=== PATIENT | female | born 1960 | race Two or more races ===

== ENCOUNTER 2021-11-11 13:19 | Emergency (ER) | payer OTHER ==
[~2021-11-11] VITALS: Ht 157.5 cm; Wt 89.9 kg
[2021-11-11] MEDS ORDERED: ASPIRIN CHEWABLE 81 MG TABLET. PO ONE (14:00)
--- NOTE | 2021-11-11 14:02 | PHYS DOC ---
Past Medical History Past Surgical History: No Surgical History General Adult EDM: Chief Complaint: UPPER EXTREMITY PAIN HPI: HPI: Patient is a 61 year old female who presents with yesterday awoke with left arm pressure type pain that does come and go that starts at the shoulder and will go down the arm. She did get a headache this morning but was taken away with ibuprofen. She denies taking anything for the pain. She has been very stressed out lately due to family problems. Patient has a history of hypertension, high cholesterol, prediabetes. Patient states she does not take any medications because everything is controlled at this time. [facility] goes to the [facility] for her care. Patient denies any close family members having any heart problems or heart attacks. She denies chest pain, numbness or tingling, as of breath, fever, extremity swelling, skin color change, skin temperature change, abdominal pain, nausea, vomiting, dizziness, vision change. She is denying any pain at this time. She denies any current injury to the extremity. Review of Systems: Review of Systems: Constitutional: Denies fever or chills. [] Eyes: Denies change in visual acuity. [] HENT: Denies nasal congestion or sore throat. [] Respiratory: Denies cough or shortness of breath. [] Cardiovascular: Denies chest pain or edema. [] GI: Denies abdominal pain, nausea, vomiting, bloody stools or diarrhea. [] : Denies dysuria. [] Musculoskeletal: Denies back pain or joint pain. + Left arm pain [] Integument: Denies rash. [] Neurologic: + headache, denies focal weakness or sensory changes. + Left arm heaviness [] Endocrine: Denies polyuria or polydipsia. [] Lymphatic: Denies swollen glands. [] Psychiatric: Denies depression or anxiety. [] Heart Score: C/O Chest Pain: No HEART Score for Chest Pain: HEART Score for Chest Pain Response (Comments) Value History Slighlty/Non-Suspicious 0 ECG Normal 0 Age >45 - < 65 1 Risk Factors 1 or 2 Risk Factors 1 Troponin < Normal Limit 0 Total 2 Risk Factors: Risk Factors: DM, Current or recent (<one month) smoker, HTN, HLP, family history of CAD, obesity. Risk Scores: Score 0 - 3: 2.5% MACE over next 6 weeks - Discharge Home Score 4 - 6: 20.3% MACE over next 6 weeks - Admit for Clinical Observation Score 7 - 10: 72.7% MACE over next 6 weeks - Early Invasive Strategies Current Medications: Current Medications Medications (Trade) Dose Ordered Sig/Orville Start Time Stop Time Status Last Admin Dose Admin Aspirin (Aspirin Chewable) 324 mg 1X ONCE 11/11/21 14:00 11/11/21 14:01 UNV Physical Exam: PE: Constitutional: Well developed, well nourished, no acute distress, non-toxic appearance. [] HENT: Normocephalic, atraumatic, bilateral external ears normal, oropharynx moist, no oral exudates, nose normal. [] Eyes: PERRLA, EOMI, conjunctiva normal, no discharge. [] Neck: Normal range of motion, no tenderness, supple, no stridor. [] Cardiovascular:Heart rate regular rhythm, no murmur [] Lungs & Thorax: Bilateral breath sounds clear to auscultation [] Abdomen: Bowel sounds normal, soft, no tenderness, no masses, no pulsatile masses. [] Skin: Warm, dry, no erythema, no rash. [] Back: No tenderness, no CVA tenderness. [] Extremities: No tenderness, no cyanosis, no clubbing, ROM intact, no edema. [] Neurologic: Alert and oriented X 3, normal motor function, normal sensory function, no focal deficits noted. [] Psychologic: Affect normal, judgement normal, mood normal. [] Normal physical exam Current Patient Data: Vital Signs: Vital Signs Date Time Temp Pulse Resp B/P (MAP) Pulse Ox O2 Delivery O2 Flow Rate FiO2 11/11/21 13:20 98.6 114 18 165/79 (107) 98 Room Air 98.6 EKG: EK and read by Dr. Sanchez as sinus rhythm and no STEMI. Radiology/Procedures: Radiology/Procedures: [] Impression: [facility] [address] [place] [address] IMAGING REPORT Signed PATIENT: CORRY CAIN ACCOUNT: [id number] : 1960 LOCATION: ER AGE: 61 SEX: F EXAM STATUS: PRE ER ORD. PHYSICIAN: PREETI DUMAS APRN REASON: htn, left arm pain PROCEDURE: PORTABLE CHEST 1V XR CHEST 1V INDICATION: htn, left arm pain . COMPARISON STUDY: None. FINDINGS: Lungs: Normal lung volume. No pulmonary mass or consolidation. The trach eobronchial tree and hilar structures are normal. Pleura: No pleural effusion or pneumothorax. Heart and Mediastinum: The cardiomediastinal silhouette is normal. Tortuosity of the thoracic aorta. IMPRESSION: No acute cardiopulmonary process. Electronically signed by: Adriano Pereira MD (11/11/2021 2:54 PM) [facility] DICTATED and SIGNED BY: ADRIANO PEREIRA MD DATE: 11/11/[address] [place] [address] [place] [address] IMAGING REPORT Signed PATIENT: CORRY CAINACCOUNT: [id number] : 1960 LOCATION: ER AGE: 61 SEX: F EXAM STATUS: PRE ER ORD. PHYSICIAN: PREETI DUMAS APRN REASON: headache, left arm weakness PROCEDURE: CT HEAD WO CONTRAST EXAMINATION: CT HEAD/BRAIN WO CLINICAL HISTORY: Headache, left arm weakness. TECHNIQUE: Serial axial images without IV contrast were obtained from the vertex to the foramen magnum. CT Dose Reduction Employed: One or more of the following individualized dose reduction techniques were utilized for this examination: 1. Automated exposure control 2. Adjustment of the mA and/or kV according to patient size 3. Use of iterative reconstruction technique. COMPARISON: None FINDINGS: Acute Change: No evidence of an acute infarct or other acute parenchymal process. Hemorrhage: No evidence of acute intracranial hemorrhage. Mass Lesion/Mass Effect: No evidence of intracranial mass or extraaxial fluid collection. No significant mass effect. Chronic Change: Patchy hypoattenuation in the supratentorial white matter, asymmetrically prominent in the left frontal and right parietal lobes, nonspecific but may be related to moderate microvascular ischemia. Small calcification along the lateral right parietal lobe, possibly sulcal. Atherosclerotic calcification of the intracranial portion of the bilateral internal carotid arteries. Parenchyma: Mild generalized volume loss. Ventricles: Ventricles within normal limits for age. Paranasal Sinuses and Skull Base: Visualized paranasal sinuses clear. Visualized skull base and soft tissues unremarkable. IMPRESSION: No evidence of acute intracranial abnormality. If concern for acute stroke, recommend MRI for further evaluation. Nonspecific supratentorial white matter hypoattenuation as described, possibly related to chronic microvascular ischemia. Electronically signed by: Sharad Peng DO (11/11/2021 2:34 PM) [id number] DICTATED and SIGNED BY: SHARAD PENG DO DATE: 11/11/21 1430 Course & Med Decision Making: Course & Med Decision Making Pertinent Labs and Imaging studies reviewed. (See chart for details) See HPI. Alert and oriented x4. Ambulatory with a steady gait. Speaks in full clear sentences. NIH is 0. Neurologically intact. Radial pulse strong pre sent. No extremity edema. Skin pink warm and dry. Cap refills less than 2 seconds. Full range of motion of all joints. Denies any neck pain and there is no nuchal rigidity. Denies a headache at this time. PERRLA. Vital signs are within normal limits. Her son-in-law is in the room interpreting for her. Patient is given an aspirin in the ED. Blood work is unremarkable. She had 2 troponins to rule out ACS. Vital signs have remained normal. Patient to follow-up at her clinic. With exam symptoms t his is likely a pinched nerve. [] Dragon Disclaimer: [place] Disclaimer: This electronic medical record was generated, in whole or in part, using a voice recognition dictation system. NIHSS Stroke Scale NIH Stroke Scale: NIH Stroke Scale Response (Comments) Value Level of Consciousness: 0 Alert/Responsive 0 LOC Questions: 0 Answers both correctly 0 LOC Commands: 0 Performs both tasks 0 Best Gaze: 0 Normal 0 Visual: 0 No visual loss 0 Facial Palsy: 0 Normal, symmetrical 0 Motor - Left Arm 0 No drift 0 Motor - Right Arm 0 No drift 0 Motor - Left Leg 0 No drift 0 Motor: Right Leg 0 No drift 0 Limb Ataxia: 0 Absent 0 Sensory: 0 No loss 0 Best Language: 0 Normal 0 Dysathria: 0 Normal 0 Extinction and Inattention: 0 Normal 0 Total 0 Departure Departure Impression: Primary Impression: Left arm pain Disposition: 01 HOME / SELF CARE / HOMELESS Condition: STABLE Referrals: NURIS GODINEZ DO (PCP) CHERRY WILLINGHAM MD Patient Instructions: Pinched Nerve Additional Instructions: Follow-up at your primary clinic as soon as possible. Take medication as prescribed and with food. Remember the muscle relaxer can make you sleepy should not drive while taking this medication. If you begin having shortness of breath, severe headache or dizziness, vomiting, chest pain you need to return to the emergency room. Scripts Cyclobenzaprine Hcl (CYCLOBENZAPRINE HCL) 5 Mg Tablet 1 TAB PO TID, #15 TAB Prov: PREETI DUMAS APRN 11/11/21 Ibuprofen (IBUPROFEN) 600 Mg Tablet 600 MG PO PRN Q6HRS PRN for INFLAMMATION, #20 TAB Prov: PREETI DUMAS APRN 11/11/21 PREETI DUMAS APRN Nov 11, 2021 14:01
[2021-11-11 14:30] LABS: BASO # 0.1 x10^3/uL (0.0-0.2); BASO % 1 % (0-3); EOS # 0.2 x10^3/uL (0.0-0.7); EOS % 2 % (0-3); HEMATOCRIT 44.5 % (36.0-47.0); HEMOGLOBIN 14.9 g/dL (12.0-15.5); LYMPH # 2.2 x10^3/uL (1.0-4.8); LYMPH % 31 % (24-48); MEAN CORPUSCULAR HEMOGLOBIN 31 pg (25-35); MEAN CORPUSCULAR HGB CONC 34 g/dL (31-37); MEAN CORPUSCULAR VOLUME 91 fL (79-100); MONO # 0.4 x10^3/uL (0.0-1.1); MONO % 5 % (0-9); NEUT # 4.3 x10^3/uL (1.8-7.7); NEUT % 60 % (31-73); PLATELET COUNT 254 x10^3/uL (140-400); RED BLOOD COUNT 4.88 x10^6/uL (3.50-5.40); RED CELL DISTRIBUTION WIDTH 13.3 % (11.5-14.5); WHITE BLOOD COUNT 7.1 x10^3/uL (4.0-11.0)
--- NOTE | 2021-11-11 14:37 | RAD ---
EXAMINATION: CT HEAD/BRAIN WO CLINICAL HISTORY: Headache, left arm weakness. TECHNIQUE: Serial axial images without IV contrast were obtained from the vertex to the foramen magnu m. CT Dose Reduction Employed: One or more of the following individualized dose reduction techniques elda e utilized for this examination: 1. Automated exposure control 2. Adjustment of the mA and/or kV ac cording to patient size 3. Use of iterative reconstruction technique. COMPARISON: None FINDINGS: Acute Change: No evidence of an acute infarct or other acute parenchymal process. Hemorrhage: No evidence of acute intracranial hemorrhage. Mass Lesion/Mass Effect: No evidence of intracranial mass or extraaxial fluid collection. No signific ant mass effect. Chronic Change: Patchy hypoattenuation in the supratentorial white matter, asymmetrically prominent i n the left frontal and right parietal lobes, nonspecific but may be related to moderate microvascular ischemia. Small calcification along the lateral right parietal lobe, possibly sulcal. Atheroscleroti c calcification of the intracranial portion of the bilateral internal carotid arteries. Parenchyma: Mild generalized volume loss. Ventricles: Ventricles within normal limits for age. Paranasal Sinuses and Skull Base: Visualized paranasal sinuses clear. Visualized skull base and soft tissues unremarkable. IMPRESSION: No evidence of acute intracranial abnormality. If concern for acute stroke, recommend MRI for further evaluation. Nonspecific supratentorial white matter hypoattenuation as described, possibly related to chronic rowena rovascular ischemia. Electronically signed by: Sharad Marc DO (11/11/2021 2:34 PM) [id number]
[2021-11-11 14:40] LABS: CALCIUM 9.2 mg/dL (8.5-10.1); CREATININE 0.8 mg/dL (0.6-1.0); GFR 72.4; POTASSIUM 3.7 mmol/L (3.5-5.1)
[2021-11-11 14:52] LABS: ALBUMIN 4.2 g/dL (3.4-5.0); ALBUMIN/GLOBULIN RATIO 1.1 (1.0-1.7); MAGNESIUM 2.3 mg/dL (1.8-2.4); TOTAL BILIRUBIN 0.7 mg/dL (0.2-1.0)
--- NOTE | 2021-11-11 14:56 | RAD ---
XR CHEST 1V INDICATION: htn, left arm pain . COMPARISON STUDY: None. FINDINGS: Lungs: Normal lung volume. No pulmonary mass or consolidation. The tracheobronchial tree and hilar st ructures are normal. Pleura: No pleural effusion or pneumothorax. Heart and Mediastinum: The cardiomediastinal silhouette is normal. Tortuosity of the thoracic aorta. IMPRESSION: No acute cardiopulmonary process. Electronically signed by: Derrick Pereira MD (11/11/2021 2:54 PM) [facility] SYSTEM[facility]
[2021-11-11 16:26] VITALS: BP 152/75
[2021-11-11] MEDS ORDERED: CYCL5TAB PO (17:17)
[2021-11-11] MEDS ORDERED: IBUP-1007 PO (17:17)
--- NOTE | 2021-11-12 00:29 | EKG ---
[facility] [address] [place] [address] Test Date: 2021-11-11 Test Time: 14:05:55 Pat Name: CORRY CAIN Department: Room: Gender: F Backroom Associate: : 1960 Requested By: PREETI DUMAS Order Number: [id number] Reading MD: Collin Berg Measurements Intervals Wright Rate: 71 P: 165 DE: 156 QRS: 144 QRSD: 90 T: 142 QT: 382 QTc: 415 Interpretive Statements SINUS RHYTHM ABNORMAL RIGHT AXIS DEVIATION QRS(T) CONTOUR ABNORMALITY CONSISTENT WITH HIGH LATERAL INFARCT AGE UNDETERMINED CONSIDER INFERIOR INFARCT Electronically Signed On 11-18-2021 14:15:23 CDT by Collin Berg
== END 2021-11-11 17:44 | disposition home or self-care (01) ==
LOC: ER 13:19
DX: M79.602 Pain in left arm (principal); R51.9 Headache, unspecified; E78.00 Pure hypercholesterolemia, unspecified; I10 Essential (primary) hypertension
CPT/HCPCS: 36415; 70450; 71045; 80053; 83735; 84484; 85025; 93005; 99285-25